=== PATIENT | male | born 1995 | race Caucasian/White ===

== ENCOUNTER 2016-07-12 19:46 | Emergency (ER) | payer OTHER | END 2016-07-12 22:47 | disposition home or self-care (01) | LOC: ER 19:46 | DX: S62.314A Displaced fracture of base of fourth metacarpal bone, right hand, initial encounter for closed fracture (principal); S63.276A Dislocation of unspecified interphalangeal joint of right little finger, initial encounter; X58.XXXA Exposure to other specified factors, initial encounter | CPT/HCPCS: 73130-RT; 90471; 90714; 96372; 99284; A9270-GY; J1170 ==

== ENCOUNTER 2016-07-14 11:24 | Day surgery (SDC) | payer OTHER ==
--- NOTE | ~2016-07-14 | OP ---
Record Of Operation [facility] [address] [place]. [address] NAME: BC DESOUZA : [birth year] STATUS : [facility]#: [id number] AGE: 21 ADM/REG DATE : 07/14/16 MR#: [id number] REPORT SERV DATE: 07/14/16 DICTATED BY: DANIEL CRESPO DATE: 07/14/16 REPORT STATUS : Draft TRANSCRIBED BY: MODL DATE: 07/14/16 DATE OF PROCEDURE: 07/14/2016 PREOPERATIVE DIAGNOSES: Right fifth carpometacarpal dislocation and right fourth carpometacarpal fracture dislocation. POSTOPERATIVE DIAGNOSES: Right fifth carpometacarpal dislocation and right fourth carpometacarpal fracture dislocation. PROCEDURE: Closed reduction, percutaneous pinning, right fourth and fifth carpometacarpal dislocation. SURGEON: Daniel Crespo M.D. ANESTHESIA: General. COMPLICATIONS: None. BLOOD LOSS: Minimal. IMPLANTS: 0.045 K-wires x3. INDICATIONS: This is a 21-year-old gentleman sustained the above injury after punching a wall out of anger. Given the displacement, failure of closed reduction in the emergency room, recommended CRPP. Risks and benefits were discussed. Consent was obtained. DESCRIPTION OF PROCEDURE: The patient was identified in the preoperative area. Informed consent was performed and documented. Surgical site was signed. He was taken back to the operative suite, placed on the table in supine position, and general anesthesia was administered. Attention was turned to his right upper extremity, and it was prepped and draped in a normal sterile fashion. Time-out was performed and documented. Antibiotics were given at room time. We began by performing closed reduction maneuver, brought in the C arm. Once we could obtain adequate reduction, we performed closed reduction and percutaneous pinning passing three sequential 0.045 K-wires across the fourth and fifth CMC joints. There was a fracture at the fourth metacarpal base, this was grossly aligned during the reduction as well. Obtained final images. We were satisfied with the reduction. Pins were then clipped outside the skin. K-caps were placed. Instilled 0.5% Marcaine plain. Sterile dressing, ulnar gutter splint. Tourniquet was deflated. The patient tolerated the procedure well. He was taken to the recovery room in stable condition. DISCHARGE CONDITION: Satisfactory. DISCHARGE INSTRUCTIONS: The patient was given narcotic analgesics for pain and printed instructions regarding care of dressing and followup appointment. I will see him back in 10 to 14 days, at which time, we will remove the splint, evaluate the pin sites, review the x- rays and begin to work on range of motion with pin site care. Record Of Operation [facility] [address] [place]. [address] NAME: BC DESOUZA : 89 STATUS : [facility] PAT#: [id number] AGE: 21 ADM/REG DATE : 07/14/16 MR#: [id number] REPORT SERV DATE: 07/14/16 DICTATED BY: DANIEL CRESPO DATE: 07/14/16 REPORT STATUS : Draft TRANSCRIBED BY: SRINIVAS DATE: 07/14/16 HILARY/SRINIVAS Daniel Crespo M.D. / [id number] CC: Daniel Crespo M.D.
== END 2016-07-14 16:00 | disposition home or self-care (01) ==
LOC: SDC 11:24
PROVIDERS: Surgery Surgery of the Hand
PROC: 0PSM34Z Reposition Right Carpal with Internal Fixation Device, Percutaneous Approach (ICD-10-PCS; 2016-07-14)
PROC: 0PSP34Z Reposition Right Metacarpal with Internal Fixation Device, Percutaneous Approach (ICD-10-PCS; principal; 2016-07-14 12:45)
DX: S63.054A Dislocation of other carpometacarpal joint of right hand, initial encounter (principal); S62.101A Fracture of unspecified carpal bone, right wrist, initial encounter for closed fracture; F17.200 Nicotine dependence, unspecified, uncomplicated; E66.9 Obesity, unspecified
CPT/HCPCS: 76000; A9270-GY; C1713; J0690; J2175; J2250; J2270; J2405; J3010